=== PATIENT | female | born 1965 | race African-American/Black ===

== ENCOUNTER 2016-07-11 16:23 | Inpatient (IN) | payer OTHER ==
[~2016-07-11] VITALS: Ht 160 cm; Wt 57.3 kg
--- NOTE | ~2016-07-11 | HC ---
[facility] [place] [address] CONSULTATION Name: DINH MCCANN Sudheer Room #: 441-P [facility] IN M.R.#: [id number] Admission: 07/11/16 Attend Phys: Earl Colon MD Discharge: 07/18/16 Date of : 63 Report #: [id number] THIS REPORT FOR: //name// CC: Ina Colon DATE OF SERVICE: 07/12/2016 I have been asked to evaluate this 51-year-old lady who is known to me and has presented back to the Emergency Department complaining of a lower abdominal wall abscess. The patient had recently been discharged after presenting with the necrotic abscess seroma which spontaneously drained in the hospital. She was sent home with packing, but now has returned after she awakened with a large amount of green drainage coming from the abscess cavity with a strong smell of serotype odor. The patient's home health nurse called and informed Emergency Department staff that the patient was coming to the Emergency Department for evaluation. She denies fever and chills. ALLERGIES: CECLOR, OXYCODONE AND SULFA. PAST MEDICAL HISTORY: Consistent with metastatic breast carcinoma. PAST SURGICAL HISTORY: Exploratory laparotomy with excision of peritoneal mass 10/2014, at [facility], also 2014 and 2012 exploratory laparotomies for recurrent small bowel obstructions. MEDICATIONS: Doxycycline 100 mg b.i.d. Other medicines sertraline, Zoloft 50 mg daily, Desyrel 50 mg, hydroxyzine. SURGICAL HISTORY: The patient has also had besides the bowel resection, she has had laparoscopy and a hysterectomy and pain pump installed in 2016. FAMILY HISTORY: Positive for cardiovascular disease and cancer. SOCIAL HISTORY: She denies smoking or utilizing alcohol, does not use illicit drugs. REVIEW OF SYSTEMS: Her 10-point review of systems essentially noncontributory except for some nausea, slight amount of abdominal distention. PHYSICAL EXAMINATION: GENERAL: Demonstrates an alert, cooperative lady resting comfortably in bed. An NG tube is in position, IV fluids infusing. She has a port in the left anterior chest. HEENT: Unremarkable. [facility] [address] [place] [address] CONSULTATION Name: DINH MCCANN Room #: 441-P [facility] IN M.R.#: [id number] Admission: 07/11/16 Attend Phys: Earl Colon MD Discharge: 07/18/16 Date of : 63 Report #: [id number] NECK: Supple, no adenopathy. CHEST: Lungs are clear at the bases bilaterally. CARDIOVASCULAR: Regular rate and rhythm. ABDOMEN: Nondistended. EXTREMITIES: There is the open 2-3 cm diameter wound at the level of the umbilicus with a bag in place demonstrating some purulent wang brown drainage, not totally consistent with enteral contents. NEUROLOGIC: She is oriented x 3 with bilateral motor symmetry. LABORATORY DATA: Review of laboratories demonstrates significant normal labs except for a hemoglobin of less around approximately 8. CT demonstrates no evidence of bowel obstruction, but the open drain in the anterior abdominal wall cavity. DIAGNOSTIC IMPRESSION: 1. Abscess cavity of the abdominal wall, must consider the possibility of an enterocutaneous fistula that has developed secondary to metastatic carcinomatosis of the peritoneal cavity secondary to breast cancer. I would recommend proceeding with CT evaluation with oral contrast, an attempt at a fistulogram would be indicated also. Thank you for allowing us to participate in her care and we will follow her with you. <ELECTRONICALLY SIGNED> By: Colt Ramos MD, FACS 07/23/16 1357 [id number] Colt Ramos MD, FACS /nt
--- NOTE | ~2016-07-11 | HC ---
[facility] [place] [address] [address] [place] [address] CONSULTATION Name: DINH MCCANN Room #: 446-P ADM IN M.R.#: [id number] Admission: 07/11/16 Attend Phys: Earl Colon MD Discharge: Date of : 63 Report #: [id number] THIS REPORT FOR: //name// CC: Ina Colon MD REASON FOR CONSULTATION: Metastatic breast cancer. HISTORY OF PRESENT ILLNESS: The patient is a very pleasant 51-year-old female from the [place] area who has had a diagnosis of metastatic breast cancer and was recently in the hospital for bowel obstruction when she was noticed to have a spontaneous drainage from abdominal wall abscess. When the patient left, she was having clear drainage, was on antibiotics, was on oral iron and was also receiving TPN at home though she was also taking oral feedings. The drainage had been cleared yesterday, the drainage became murky all of a sudden, a sort of a creamy white brown color, and also increased in amounts. She denied fevers, chills, new mouth sores, shortness of air, more than usual. She does have some slight abdominal pain, some slight nausea, has been stooling normally if I understand right, has not had any bleeding, either hemoptysis, hematemesis or from her wound or from her urine or from her stool or any new bruising. She does have some slight leg swelling, very minimal. She has also had a CAT scan which comments about increase in rim enhancing fluid collection in the abdomen without definite fistulous tract, though there is evidence of gas found and that raises the question. Dr. Ramos from surgery is yet to see her. PAST MEDICAL HISTORY: Notable for the breast cancer originally diagnosed in 11/2006, diagnosis of stage 3A with ER/VT positive, HER-2/rios negative lobular, large primary tumor, received neoadjuvant, I believe, Adriamycin and Cytoxan x 4, the lumpectomy and axillary node dissection with 6 lymph nodes found. This was on 02/2007, completed adjuvant Taxol after that and was then placed on tamoxifen. She also had radiation therapy completed in 08/2007. 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 In 03/2013, she was found to have a widespread abdominal carcinomatosis and begun on Gemzar and carboplatin. Then subsequently she was on Aromasin and Afinitor and then in 02/2015, began Taxotere and Xeloda. I believe, she was then may be placed on Faslodex, Femara and Ibrance in 04/2015. Recently, she was found to have progressive disease and was begun on Eribulin, which I think she received maybe 1 or 2 doses. She also has a history of type 2 diabetes and an appendectomy in the past and also a D and C. 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 Nonsmoker, nondrinker. Has a son, Asad, at home. FAMILY HISTORY: Mother had a brother who may have had small cell lung cancer, mother had hypertension. Her father had cancer of unkown primary metastatic to the liver. Had a sister with some type of abdominal uterine cancer, son is healthy. ALLERGIES: She has had hives with SULFA and itching with CECLOR. MEDICATIONS: At this time in the hospital include Zoloft 50 mg daily, ciprofloxacin b.i.d., famotidine 20 b.i.d., hydromorphone p.r.n., IV fluids, trazodone 50 at bedtime p.r.n. and Zofran p.r.n. LABORATORY DATA THIS ADMISSION: BUN of 11, creatinine of 0.7. Liver functions normal, bilirubin 0.2, albumin 2.5. Note that iron studies last admit on 06/26/2016, showed an iron of 7, TIBC 135, percent saturation of 5. Coags include an INR of 1.3, APTT of 33.7, fibrinogen 375, WBC of 3.2, hemoglobin 7.2. Note that on discharge on the it was 10.5, yesterday before hydration 13, overnight 7.2 and repeat 7.2. No obvious bleeding; as mentioned. MCV 86.2. Note that she was transfused last admit 3 units of blood, platelet count 191. Differential shows nonacute changes with an ANC of 1900, retic count pending, B12 and folate last admit normal. RADIOLOGIC STUDIES: Include on this admit a CT of the abdomen and pelvis with the impression, interval increase in rim enhancing fluid collection within the anterior abdominal wall communicating with skin surface most consistent with draining abscess. There is also generalized increased bowel dilatation with fluid-filled loops, there is also distended fluid and debris in the stomach. PHYSICAL EXAMINATION: VITAL SIGNS: The patient appears her stated age, height is 5 feet 3 inches. Weight 137.3 pounds, that is 160 cm or 62.3 kilograms. Blood pressure 92/62, pulse 92, O2 sat 99%, respirations 16, afebrile at 98.8. MOOD: She is alert and pleasant, has an NG in place. NEUROLOGIC: Face is symmetrical, moving all extremities. HEENT: Oropharynx without injection, erythema or masses or mucositis. LUNGS: Has good respiratory motion. HEART: Regular rate. LYMPHATICS: No enlarged lymph nodes in the supraclavicular or cervical region. ABDOMEN: Has a draining whole wound that is probably about the size of a quarter, mid abdomen, slightly above the umbilicus, did have some brownish cream colored fluid draining from it with expression by the ostomy nurse. EXTREMITIES: Trace edema. [address] [address] CONSULTATION Name: MARY MCCANNENRIQUE Willard Room #: 446-P ADM IN M.R.#: [id number] Admission: 07/11/16 Attend Phys: Earl Colon MD Discharge: Date of : 63 Report #: [id number] DISCUSSION: Discussed with the patient that we are not sure at this time whether she has an abscess or a fistula, that most likely they will be doing an NG drainage and having the surgeon see her to see if this is communicating or not and also change her antibiotics. It will be difficult for us and dangerous if we continue chemotherapy. At this point, I told her that Dr. Gamboa would be back tomorrow. I also discussed a little bit about code status with her, she is currently a full code. I discussed with her that we will hopefully get this turned around, but it may be difficult for just to treat the breast cancer with an ongoing infection and that her chance of response to current chemotherapy is going to be somewhat limited, also discussed the possibility that we might consider if she is sick enough to get placed on the vent, that we at least might have discussion with the family to see whether we can remove her if she is not benefitting from that. We will defer few further additional discussions to the patient and her family members. ASSESSMENT AND PLAN: 1. Metastatic breast cancer. We will need to hold chemotherapy, and may not be to able to treat again if infection cannot clear. I am very worried that this will make this person's prognosis very poor over the next couple of weeks or months. 2. Abdominal wound/abscess, worrisome about fistula. We will defer to surgeons. No obvious fluid drained out at this time. We will defer whether additional studies are needed, ostomy nurse has placed ostomy bag over draining site. We will also have wound care see the patient's surgeon after seeing the patient. 3. Anemia, probably iron deficient, received 3 units, no obvious bleeding. I agree with transfusion. We will likely need to give IV iron. Coags were normal. 4. Protein-calorie malnutrition with poor oral intake, we will ask PharmD to initiate and manage TPN/continue TPN. PROGNOSIS: Guarded at this time. <ELECTRONICALLY SIGNED> By: Samir Park MD 07/13/16 0717 [id number] Samir Park MD /nt
--- NOTE | ~2016-07-11 | HC ---
[facility] [place] [address] [place] [address] CONSULTATION Name: DINH MCCANN Room #: 446-P ADM IN M.R.#: [id number] Admission: 07/11/16 Attend Phys: Earl Colon MD Discharge: Date of : 63 Report #: [id number] THIS REPORT FOR: //name// CC: Ina Colon DATE OF SERVICE: 07/14/2016 HISTORY OF PRESENT ILLNESS: The patient is a 51-year-old female with a history of metastatic breast cancer, originally diagnosed in 2006. She has known malignant ascites and carcinomatosis. She was originally admitted with a partial small-bowel obstruction picture on 06/26/2016 and during that hospitalization, had an intraabdominal wall abscesses spontaneously drained and now has an ostomy bag in place. She was readmitted on the 07/11/[address]. Harmon and his group had been following throughout. Yesterday, the patient underwent a fistulogram that showed no intra-abdominal fluid infections and no communication with the abscess cavity to the intra-abdominal cavity. She has been on TPN. She is currently on clear liquid diet. Reason for GI consultation is evaluation to advance diet. A CT scan of the abdomen was also performed yesterday that showed moderate amount of ascites scattered throughout the rectum. Contrast within the abdominal wound from recent cystogram procedure, there was no evidence of contrast noted within the peritoneal cavity or entering the small or large bowel. The patient has been tolerating clear liquids well. She would like to advance the diet. She denies any nausea or vomiting. She reports some mild abdominal discomfort. Again, she is on TPN at this time. She denies any fevers or chills. No chest pain or shortness of breath currently. PAST MEDICAL HISTORY: Metastatic breast cancer and the patient has undergone surgery as well as chemotherapy in the past, history of diabetes type 2, history of malignant ascites, recent intraabdominal wall abscess, status post drainage. No communication with anterior abdominal cavity. PAST SURGICAL HISTORY: Previous surgical resection of small bowel metastasis and pain pump placement. ALLERGIES: To CECLOR and SULFA. REVIEW OF SYSTEMS: As per HPI. FAMILY HISTORY: Negative for colon cancer. [address] [address] CONSULTATION Name: SIOBHANDINH Willard Room #: 446-[facility] IN M.R.#: [id number] Admission: 07/11/16 Attend Phys: Earl Colon MD Discharge: Date of : 63 Report #: [id number] CURRENT MEDICATIONS: Meropenem, Lomotil p.r.n., insulin sliding scale, IV fluids, TPN, magnesium, potassium chloride, sertraline, Pepcid 20 b.i.d., hydromorphone p.r.n., hydroxyzine, trazodone and Zofran p.r.n. PHYSICAL EXAMINATION: VITAL SIGNS: Temperature is 97.8, pulse 62, blood pressure is 102/68 and respiratory rate is 18. GENERAL: She is alert and oriented times 3, in no acute distress. HEENT: Sclerae nonicteric. Oropharynx clear. NECK: Supple, without lymphadenopathy. CARDIOVASCULAR: Regular rate. CHEST: Clear to auscultation anteriorly bilaterally. ABDOMEN: Soft. She is mildly tender to palpation. She has a colostomy bag over the wound drainage site in the right lower quadrant. Positive bowel sounds. EXTREMITIES: No cyanosis, clubbing or edema. LABORATORY DATA: Sodium 140, potassium 4.1, chloride 104, bicarbonate 28, BUN 10, creatinine 0.6 and glucose 146. AST is 18, total bilirubin 0.4, alkaline phosphatase 48, ALT 11, total protein 5.9 and albumin 2.0. WBC is 2.8, hemoglobin 9.7 and platelet count is 251. ASSESSMENT AND PLAN: Recent intraabdominal wall abscess, now with drainage. CT and the cystogram showed no communication into the anterior abdominal cavity or signs of fistula. The patient is tolerating clear liquids well. We would recommend increasing to a soft diet today. If she tolerates this well, we will start decreasing her total parenteral nutrition rate as well. We will continue to follow. Thank you for allowing me to participate in her care. <ELECTRONICALLY SIGNED> By: Zack Sharpe MD 07/15/16 1012 [id number] [id number] Zack Sharpe MD /nt
[~2016-07-11 16:23] MED LIST: DOXYCYCLINE 10100 MG PO
[2016-07-11 16:33] VITALS: BP 97/65
[2016-07-11 17:16] LABS: HEMATOCRIT 39.2 % (37.0-47.0); MANUAL DIFF YES; MCH 28.1 pg (26.0-34.0); MCHC 33.2 % (28.0-37.0); MCV 84.6 fL (80.0-100.0); PLATELET COUNT 164 thou/uL (150-400); RBC 4.64 mil/uL (4.20-5.00); RDW 16.9 % (10.5-14.5); WBC 2.8 thou/uL (4.0-11.0)
[2016-07-11 17:26] LABS: CALCIUM 8.2 mg/dL (8.5-10.1); CREATININE 0.9 mg/dL (0.6-1.3); POTASSIUM 3.6 mmol/L (3.5-5.1)
[2016-07-11 17:31] LABS: ALBUMIN 2.5 g/dL (3.4-5.0); DIRECT BILIRUBIN 0.2 mg/dL (<0.1-0.3); TOTAL BILIRUBIN 0.8 mg/dL (<0.1-1.0); TOTAL PROTEIN 6.9 g/dL (6.4-8.2)
[2016-07-11 17:39] LABS: ABSOLUTE NEUTROPHILS 1.9 thou/uL (1.4-8.2); TOTAL CELL COUNT 100
[2016-07-11 20:58] VITALS: BP 97/59
[2016-07-11 21:20] VITALS: BP 92/62
[2016-07-12] MEDS ORDERED: TRAZODONE HCL50 MG PO (00:13)
[2016-07-12] MEDS ORDERED: HYDROXYZINE HCL25 M1 PO (00:14)
[2016-07-12] MEDS ORDERED: ZOLOFT50 MG PO (00:19)
[2016-07-12 04:55] VITALS: BP 99/66
[2016-07-12 06:55] LABS: RDW 16.5 % (10.5-14.5); WBC 3.2 thou/uL (4.0-11.0)
[2016-07-12 06:56] LABS: HEMATOCRIT 21.8 % (37.0-47.0); MCH 28.2 pg (26.0-34.0); MCHC 32.8 % (28.0-37.0); MCV 86.2 fL (80.0-100.0); RBC 2.54 mil/uL (4.20-5.00)
[2016-07-12 07:03] LABS: CALCIUM 7.4 mg/dL (8.5-10.1); CREATININE 0.7 mg/dL (0.6-1.3); MAGNESIUM 1.2 mg/dL (1.8-2.4); POTASSIUM 3.4 mmol/L (3.5-5.1)
[2016-07-12 07:13] LABS: HEMOGLOBIN 7.2 gm/dL (12.0-15.0)
[2016-07-12 08:00] VITALS: BP 88/55
[2016-07-12 08:40] LABS: HEMATOCRIT 21.4 % (37.0-47.0)
[2016-07-12 08:42] LABS: HEMOGLOBIN 7.2 gm/dL (12.0-15.0)
[2016-07-12 08:51] LABS: APTT 33.7 Seconds (24.5-32.8); INR 1.3; PROTIME 13.3 Seconds (9.3-11.4)
[2016-07-12 09:56] LABS: PHOSPHORUS 3.4 mg/dL (2.5-4.9)
[2016-07-12 13:23] VITALS: BP 87/57
[2016-07-12] MEDS ORDERED: CIPRO I.V.400 MG/200 IV (15:09)
[2016-07-12] MEDS ORDERED: FAMOTIDINE20 MG/2 M2 IV PUSH (15:09)
[2016-07-12] MEDS ORDERED: DILAUDID1 MG/1 ML IV PUSH (15:09)
[2016-07-12 20:40] VITALS: BP 95/65
[2016-07-12 23:09] LABS: MAGNESIUM 1.9 mg/dL (1.8-2.4); POTASSIUM 3.5 mmol/L (3.5-5.1)
[2016-07-13 03:59] VITALS: BP 95/50
[2016-07-13 05:34] LABS: HEMATOCRIT 26.3 % (37.0-47.0); HEMOGLOBIN 8.7 gm/dL (12.0-15.0); MCH 28.3 pg (26.0-34.0); MCHC 33.2 % (28.0-37.0); MCV 85.3 fL (80.0-100.0); PLATELET COUNT 203 thou/uL (150-400); RBC 3.08 mil/uL (4.20-5.00); RDW 16.3 % (10.5-14.5); WBC 2.6 thou/uL (4.0-11.0)
[2016-07-13 05:36] LABS: MANUAL DIFF YES
[2016-07-13 05:48] LABS: CALCIUM 7.7 mg/dL (8.5-10.1); CREATININE 0.7 mg/dL (0.6-1.3); MAGNESIUM 1.6 mg/dL (1.8-2.4); POTASSIUM 3.5 mmol/L (3.5-5.1)
[2016-07-13 07:36] LABS: ABSOLUTE NEUTROPHILS 1.6 thou/uL (1.4-8.2); TOTAL CELL COUNT 100
[2016-07-13 07:37] LABS: ANISOCYTOSIS 1+
[2016-07-13 08:38] VITALS: BP 114/81
[2016-07-13 12:28] VITALS: BP 118/74
[2016-07-13 14:06] LABS: MAGNESIUM 1.8 mg/dL (1.8-2.4); POTASSIUM 3.9 mmol/L (3.5-5.1)
[2016-07-13 16:24] VITALS: BP 93/68
[2016-07-13 19:37] VITALS: BP 124/80
[2016-07-14 00:06] LABS: GLYCOHEMOGLOBIN (HGB A1C) 5.4 % (4.8-5.6)
[2016-07-14 04:50] VITALS: BP 112/72
[2016-07-14 06:05] LABS: HEMATOCRIT 28.7 % (37.0-47.0); HEMOGLOBIN 9.7 gm/dL (12.0-15.0); MCH 28.4 pg (26.0-34.0); MCHC 33.7 % (28.0-37.0); MCV 84.1 fL (80.0-100.0); PLATELET COUNT 251 thou/uL (150-400); RBC 3.41 mil/uL (4.20-5.00); RDW 16.2 % (10.5-14.5); WBC 2.8 thou/uL (4.0-11.0)
[2016-07-14 06:06] LABS: MANUAL DIFF YES
[2016-07-14 06:34] LABS: CALCIUM 8.3 mg/dL (8.5-10.1); CREATININE 0.6 mg/dL (0.6-1.3); MAGNESIUM 1.5 mg/dL (1.8-2.4); PHOSPHORUS 2.7 mg/dL (2.5-4.9); POTASSIUM 4.1 mmol/L (3.5-5.1); TOTAL BILIRUBIN 0.4 mg/dL (<0.1-1.0); TOTAL PROTEIN 5.9 g/dL (6.4-8.2)
[2016-07-14 06:39] LABS: ABSOLUTE NEUTROPHILS 1.3 thou/uL (1.4-8.2); ANISOCYTOSIS 2+; ATYPICAL LYMPHS 1 %; HYPOCHROMASIA SLIGHT; POIKILOCYTOSIS SLIGHT; POLYCHROMASIA SLIGHT; TOTAL CELL COUNT 100
[2016-07-14 08:00] VITALS: BP 106/70
[2016-07-14 12:00] VITALS: BP 102/68
[2016-07-14 16:00] VITALS: BP 108/78
[2016-07-14 20:24] VITALS: BP 128/72
[2016-07-15 05:27] VITALS: BP 111/61
[2016-07-15 06:05] LABS: HEMATOCRIT 29.9 % (37.0-47.0); HEMOGLOBIN 9.7 gm/dL (12.0-15.0); MCH 27.9 pg (26.0-34.0); MCHC 32.5 % (28.0-37.0); MCV 85.7 fL (80.0-100.0); PLATELET COUNT 254 thou/uL (150-400); RBC 3.49 mil/uL (4.20-5.00); RDW 16.5 % (10.5-14.5); WBC 2.9 thou/uL (4.0-11.0)
[2016-07-15 06:11] LABS: MANUAL DIFF YES
[2016-07-15 06:22] LABS: ALBUMIN 2.1 g/dL (3.4-5.0); CALCIUM 8.3 mg/dL (8.5-10.1); CREATININE 0.7 mg/dL (0.6-1.3); POTASSIUM 4.2 mmol/L (3.5-5.1); TOTAL BILIRUBIN 0.3 mg/dL (<0.1-1.0); TOTAL PROTEIN 6.1 g/dL (6.4-8.2)
[2016-07-15 06:28] LABS: MAGNESIUM 1.5 mg/dL (1.8-2.4); PHOSPHORUS 3.9 mg/dL (2.5-4.9)
[2016-07-15 06:56] LABS: ABSOLUTE NEUTROPHILS 0.9 thou/uL (1.4-8.2); TOTAL CELL COUNT 100
[2016-07-15 06:57] LABS: PLATELET ESTIMATE NORMAL
[2016-07-15 08:00] VITALS: BP 87/58
[2016-07-15 12:00] VITALS: BP 95/56
[2016-07-15 16:00] VITALS: BP 118/67
[2016-07-15 21:10] VITALS: BP 119/60
[2016-07-16 03:50] VITALS: BP 118/57
[2016-07-16 04:27] LABS: HEMATOCRIT 30.3 % (37.0-47.0); MCH 28.4 pg (26.0-34.0); MCV 85.9 fL (80.0-100.0); RBC 3.53 mil/uL (4.20-5.00); RDW 16.5 % (10.5-14.5); WBC 3.6 thou/uL (4.0-11.0)
[2016-07-16 04:45] LABS: CALCIUM 8.4 mg/dL (8.5-10.1); CREATININE 0.7 mg/dL (0.6-1.3); MAGNESIUM 1.6 mg/dL (1.8-2.4)
[2016-07-16 08:00] VITALS: BP 96/62
[2016-07-16 12:00] VITALS: BP 104/65
[2016-07-16 16:00] VITALS: BP 101/66
[2016-07-16 20:05] VITALS: BP 90/64
[2016-07-17 04:40] VITALS: BP 100/65
[2016-07-17 05:41] LABS: HEMOGLOBIN 9.7 gm/dL (12.0-15.0); MCH 28.2 pg (26.0-34.0); MCHC 32.4 % (28.0-37.0); RBC 3.45 mil/uL (4.20-5.00); RDW 16.7 % (10.5-14.5); WBC 3.8 thou/uL (4.0-11.0)
[2016-07-17 06:07] LABS: CALCIUM 8.6 mg/dL (8.5-10.1); CREATININE 0.7 mg/dL (0.6-1.3); MAGNESIUM 1.9 mg/dL (1.8-2.4); POTASSIUM 4.2 mmol/L (3.5-5.1)
[2016-07-17 08:00] VITALS: BP 109/68
[2016-07-17 12:00] VITALS: BP 107/73
[2016-07-17 16:00] VITALS: BP 101/62
[2016-07-17 20:45] VITALS: BP 103/70
[2016-07-18] VITALS (7 sets, daily range): BP systolic 91–110; BP diastolic 56–75
[2016-07-18] MEDS ORDERED: DILAUDID 2 MG TA2 MG PO (15:24)
[2016-07-18] MEDS ORDERED: FLAGYL500 MG PO (15:25)
[2016-07-18] MEDS ORDERED: CIPRO500 MG PO (15:25)
[2016-07-18] MEDS ORDERED: TPN IV (17:50)
[2016-07-18] MEDS ORDERED: LIPIDS IV (17:50)
[2016-08-24] MEDS ORDERED: MS CONTIN 30 MG30 M1 GT (23:43)
[2016-08-24] MEDS ORDERED: KLOR-CON 1010 MEQ PO (23:44)
[2016-08-24] MEDS ORDERED: VITAMIN D 5050000 I1 PO (23:44)
[2016-08-24] MEDS ORDERED: ATIVAN1 MG PO (23:44)
[2016-08-24] MEDS ORDERED: FLEXERIL PO (23:44)
== END 2016-07-18 18:35 | disposition home health service (06) | DRG 871 ==
LOC: ER 16:23 → 4S 19:57 → EROBS 19:57 → 4S 20:52
PROVIDERS: Emergency Medicine; Family Medicine; Internal Medicine; Internal Medicine Hematology & Oncology; Nurse Practitioner; Nurse Practitioner Family; Surgery
PROC: 30233N1 Transfusion of Nonautologous Red Blood Cells into Peripheral Vein, Percutaneous Approach (ICD-10-PCS; principal; 2016-07-12)
PROC: 3E0436Z Introduction of Nutritional Substance into Central Vein, Percutaneous Approach (ICD-10-PCS; 2016-07-12)
PROC: 02HV33Z Insertion of Infusion Device into Superior Vena Cava, Percutaneous Approach (ICD-10-PCS; 2016-07-12)
PROC: BW111ZZ Fluoroscopy of Abdomen and Pelvis using Low Osmolar Contrast (ICD-10-PCS; 2016-07-13)
DX: A41.9 Sepsis, unspecified organism (principal); E43 Unspecified severe protein-calorie malnutrition; C78.4 Secondary malignant neoplasm of small intestine; K56.60 Unspecified intestinal obstruction; L02.211 Cutaneous abscess of abdominal wall; C79.2 Secondary malignant neoplasm of skin; K63.2 Fistula of intestine; K56.7 Ileus, unspecified; C50.919 Malignant neoplasm of unspecified site of unspecified female breast; G89.29 Other chronic pain; D63.8 Anemia in other chronic diseases classified elsewhere; E11.65 Type 2 diabetes mellitus with hyperglycemia; E83.42 Hypomagnesemia; Z88.2 Allergy status to sulfonamides; Z88.0 Allergy status to penicillin; Z88.1 Allergy status to other antibiotic agents; Z98.890 Other specified postprocedural states; Z68.22 Body mass index [BMI] 22.0-22.9, adult; Z90.710 Acquired absence of both cervix and uterus; Z79.899 Other long term (current) drug therapy; Z79.4 Long term (current) use of insulin; Z80.1 Family history of malignant neoplasm of trachea, bronchus and lung; Z82.49 Family history of ischemic heart disease and other diseases of the circulatory system; T45.1X5A Adverse effect of antineoplastic and immunosuppressive drugs, initial encounter; D72.819 Decreased white blood cell count, unspecified; E87.6 Hypokalemia
CPT/HCPCS: 10100; 27000

== ENCOUNTER 2016-07-28 19:33 | Emergency (ER) | payer OTHER ==
[~2016-07-28] VITALS: Ht 160 cm; Wt 56.2 kg
[~2016-07-28 19:33] MED LIST changes: +CIPRO I.V.400 MG/200 IV; +CIPRO500 MG PO; +DILAUDID 2 MG TA2 MG PO; +DILAUDID1 MG/1 ML IV PUSH; +FAMOTIDINE20 MG/2 M2 IV PUSH; +FLAGYL500 MG PO; +HYDROXYZINE HCL25 M1 PO; +LIPIDS IV; +TPN IV; +TRAZODONE HCL50 MG PO; +ZOLOFT50 MG PO
[2016-07-28 20:36] LABS: ABSOLUTE NEUTROPHILS 7.4 thou/uL (1.4-8.2); BASOPHILS 0.4 % (0.0-2.0); EOSINOPHILS 0.1 % (0.0-3.0); HEMATOCRIT 32.8 % (37.0-47.0); HEMOGLOBIN 10.9 gm/dL (12.0-15.0); LYMPHOCYTES 14.5 % (24.0-44.0); MANUAL DIFF NO; MCH 28.5 pg (26.0-34.0); MCHC 33.1 % (28.0-37.0); MCV 85.9 fL (80.0-100.0); PLATELET COUNT 150 thou/uL (150-400); RBC 3.82 mil/uL (4.20-5.00); RDW 18.5 % (10.5-14.5); WBC 9.1 thou/uL (4.0-11.0)
[2016-07-28 20:45] LABS: CALCIUM 8.6 mg/dL (8.5-10.1); POTASSIUM 3.3 mmol/L (3.5-5.1)
[2016-07-28 20:47] LABS: ALBUMIN 2.9 g/dL (3.4-5.0); DIRECT BILIRUBIN 0.2 mg/dL (<0.1-0.3); TOTAL BILIRUBIN 0.8 mg/dL (<0.1-1.0); TOTAL PROTEIN 7.2 g/dL (6.4-8.2)
[2016-08-24] MEDS ORDERED: MS CONTIN 30 MG30 M1 GT (23:43)
[2016-08-24] MEDS ORDERED: ATIVAN1 MG PO (23:44)
[2016-08-24] MEDS ORDERED: FLEXERIL PO (23:44)
[2016-08-24] MEDS ORDERED: VITAMIN D 5050000 I1 PO (23:44)
[2016-08-24] MEDS ORDERED: KLOR-CON 1010 MEQ PO (23:44)
== END 2016-07-28 21:45 | disposition home or self-care (01) ==
LOC: ER 19:33
PROVIDERS: Emergency Medicine; Physician Assistant
DX: K63.2 Fistula of intestine (principal); S31.109A Unspecified open wound of abdominal wall, unspecified quadrant without penetration into peritoneal cavity, initial encounter; I10 Essential (primary) hypertension; E11.9 Type 2 diabetes mellitus without complications; Z88.2 Allergy status to sulfonamides; Z88.1 Allergy status to other antibiotic agents; Z88.8 Allergy status to other drugs, medicaments and biological substances; Z90.710 Acquired absence of both cervix and uterus; Z48.01 Encounter for change or removal of surgical wound dressing; X58.XXXA Exposure to other specified factors, initial encounter; Y93.9 Activity, unspecified; Y92.9 Unspecified place or not applicable; Y99.9 Unspecified external cause status

== ENCOUNTER → 2016-07-30 | Outpatient (CLI) | payer OTHER ==
[~2016-07-30] MED LIST changes: +ATIVAN1 MG PO; +FLEXERIL PO; +KLOR-CON 1010 MEQ PO; +MS CONTIN 30 MG30 M1 GT; +VITAMIN D 5050000 I1 PO
--- NOTE | ~2016-07-30 | HC ---
[facility] [place] [address] [place] [address] CONSULTATION Name: DINH MCCANN Sudheer Room #: PRE [facility].#: [id number] Admission: Attend Phys: Rene Pedersen MD Discharge: Date of : 63 Report #: [id number] THIS REPORT FOR: //name// CC: Ina Pedersen HISTORY OF PRESENT ILLNESS: This is a 51-year-old black female with metastatic breast cancer, who presented to the Emergency Department yesterday for a foul-smelling drainage coming out of an abdominal wall wound. The patient was seen several weeks ago by General Surgery for an abdominal wall abscess that was drained. The patient at that point in time states that she was doing her own dressings at home and was until yesterday afternoon, she started noting a large amount of greenish drainage and extremely foul-smelling odor. The patient contacted our office as she had an appointment actually to see me today and stated that she thought she had stool coming out of her wound. At that time, she was requested that she go to the Emergency Department to be evaluated for a fistula. The patient on CAT scan was noted to have a possible small-bowel obstruction and now has an NG tube in place. The patient denies any actual abdominal pain. The patient denies fevers or chills. The patient denies any other further wounds. PAST MEDICAL HISTORY: Significant for breast cancer with metastases initially diagnosed in 2006, had a recurrence in 2012. The patient has had bowel obstructions in the past secondary to small bowel metastasis, the recent abdominal wall abscess, which was drained, history of type 2 diabetes, previous hysterectomy, history of hypertension. CURRENT MEDICATIONS: Multiple. I reviewed the patient's medication list, does include doxycycline. DRUG ALLERGIES: SULFA, OXYCONTIN AND CECLOR. FAMILY HISTORY: Not pertinent to current medical condition. SOCIAL HISTORY: The patient does not smoke or drink alcohol. REVIEW OF SYSTEMS: CONSTITUTIONAL: The patient denies fevers or chills. NEUROLOGIC: The patient with overall generalized weakness. EYES: No complaints. ENT: No complaints. CARDIAC: The patient denies chest pain, palpitations, peripheral edema. RESPIRATORY: The patient denies shortness of breath, cough, wheezes. GASTROINTESTINAL: The patient denies nausea, was currently being treated for small-bowel obstruction without actual abdominal pain. The patient has no diarrhea. GENITOURINARY: The patient denies urgency or frequency. [address] [address] CONSULTATION Name: DINH MCCANN Sudheer Room #: PRE [facility]#: [id number] Admission: Attend Phys: Rene Pedersen MD Discharge: Date of : 63 Report #: [id number] MUSCULOSKELETAL: No complaints. SKIN: There is a surgical wound to the abdominal wall with foul-smelling drain. PHYSICAL EXAMINATION: VITAL SIGNS: Stable. The patient is afebrile. GENERAL: This is an alert and oriented x 3, very pleasant, thin black female who is in no acute distress. HEENT: Normocephalic, atraumatic. Mucous membranes are dry. NG tube was placed in the right naris. Pupils are round. Sclerae white. NECK: Supple and nontender. The patient has an IJ catheter on the right. LUNGS: Slight diminished breath sounds heard throughout. HEART: Slightly tachycardic without murmur. ABDOMEN: Soft without tenderness or rebound. On the lower portion of the abdomen is a surgical wound, which is approximately 3.5 x 3.5 cm circumferentially. When probed, it does go down to what almost appears to be the fascia which there is a defect in the fascia. There was approximately a 6 cm of circumferential undermining. There is a significant amount of greenish brown, foul-smelling drainage. Periwound itself is otherwise intact without significant erythema or warmth. EXTREMITIES: The patient moves all extremities without difficulty. Bilateral heels are intact. NEUROLOGIC: Cranial nerves 2-12 are grossly intact. Motor and sensory grossly intact. LABORATORY DATA: White count 3.2, hemoglobin 7.2, prealbumin markedly low at 7. WOUND CARE COURSE: I just spoke with Dr. Colt Ramos who did the recent I and D of the abscess of the abdominal wall. CAT scan was reviewed. It showed a concern for possible enterocutaneous fistula with fluid collection within the anterior abdomen communicating with the skin surface and he states at this time, he feels the patient needs to be transferred to [facility] where they have surgical oncologist, because most likely this is possibly a metastatic enterocutaneous fistula. I have spoken with the patient's hospitalist taking care of the patient. He will start to arrange a transfer if accepts the patient. At this time, they will continue with NG tube for reduction of the small-bowel obstruction and we will place an ostomy bag over the wound site given the copious amounts of drainage. IMPRESSION: 1. 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 2. Metastatic breast cancer. 3. Small-bowel obstruction. 4. Severe protein calorie malnutrition, prealbumin is 7. 5. Generalized debility. PLAN: Described in length as above. We will continue to follow the patient [address] [address] CONSULTATION Name: DINH MCCANN Room #: PRE [facility] Karina.#: [id number] Admission: Attend Phys: Rene Pedersen MD Discharge: Date of : 63 Report #: [id number] here for her abdominal wound; however, possibly the best thing for this patient would be just to have if surgery is not an option, try to control the drainage with the ostomy type bag pending further surgical evaluation. <ELECTRONICALLY SIGNED> By: Rene Pedersen MD 07/26/16 1342 [id number] [id number] Rene Pedersen MD /nt
== END ==
LOC: HYPER
DX: T81.31XA Disruption of external operation (surgical) wound, not elsewhere classified, initial encounter (principal); E11.9 Type 2 diabetes mellitus without complications; C17.9 Malignant neoplasm of small intestine, unspecified; Z85.3 Personal history of malignant neoplasm of breast; Z79.899 Other long term (current) drug therapy; Z87.891 Personal history of nicotine dependence; W88.8XXA Exposure to other ionizing radiation, initial encounter